=== PATIENT | male | born 1990 | race Caucasian/White ===

== ENCOUNTER 2017-01-10 22:39 | Emergency (ER) | payer SELFPAY ==
[2017-01-11 02:23] VITALS: BP 136/76
[2017-01-11] MEDS ORDERED: NORCO 7.5/325 ONE (03:26)
[2017-01-11] MEDS ORDERED: NORCO 7.5/325 PO ONE (03:30)
--- NOTE | 2017-01-11 03:31 | Emergency Department Report ---
Abscess Boil HPI - HPI Chief Complaint: Skin/Abscess/Foreign Body Stated Complaint: ABCESS Time Seen by Provider: 01/11/17 02:20 History: Yes Pain, No Fever, No Purulent Drainage, No Numbness, No Foreign Body , No Previous History, No Insect Bite HPI: This is a 26-year-old male that presents with 1 cm left axillary abscess. Patient denies any fever, chills, numbness or tingling station extremity. Patient stated has noticed it 3 days ago. Patient denies any [id number] treatment. Patient denies chest pain, shortness of breath, abdominal pain, nausea or vomiting. is currently present at bedside. At this time the patient wasn't toxic or ill appearance. No signs of distress noted. Home Medications: Previous Rx's Medication Instructions Recorded Last Taken Type Cephalexin [Keflex] 500 mg PO Q12HR #10 cap 08/01/15 Unknown Rx Ibuprofen [Motrin] 800 mg PO Q8HR PRN #30 tablet 08/01/15 Unknown Rx HYDROcodone/APAP 7.5-325 [Noel 1 each PO Q6HR PRN #16 tablet 01/11/17 Unknown Rx 7.5/325] Ibuprofen [Motrin 600 MG tab] 600 mg PO Q8H PRN 7 Days 01/11/17 Unknown Rx Sulfamethoxazole/Trimethoprim 1 each PO BID 7 Days 01/11/17 Unknown Rx [Bactrim DS TAB] Allergies/Adverse Reactions: Allergies Allergy/AdvReac Type Severity Reaction Status Date / Time No Known Allergies Allergy Verified 08/01/15 16:46 ED Review of Systems ROS: Stated complaint: ABCESS Other details as noted in HPI Constitutional: denies: chills, fever Eyes: denies: eye pain, eye discharge, vision change ENT: denies: ear pain, throat pain Respiratory: denies: cough, shortness of breath, wheezing Cardiovascular: denies: chest pain, palpitations Endocrine: no symptoms reported Gastrointestinal: denies: abdominal pain, nausea, diarrhea Genitourinary: denies: urgency, dysuria Musculoskeletal: denies: back pain, joint swelling, arthralgia Skin: denies: rash, lesions Neurological: denies: headache, weakness, paresthesias Psychiatric: denies: anxiety, depression Hematological/Lymphatic: denies: easy bleeding, easy bruising ED Past Medical Hx - Past Medical History Previous Medical History?: No - Surgical History Past Surgical History?: No - Social History Smoking Status: Current Every Day Smoker Substance Use Type: None - Medications Home Medications: Home Medications Medication Instructions Recorded Confirmed Last Taken Type Cephalexin [Keflex] 500 mg PO Q12HR #10 cap 08/01/15 Unknown Rx Ibuprofen [Motrin] 800 mg PO Q8HR PRN #30 tablet 08/01/15 Unknown Rx HYDROcodone/APAP 7.5-325 [Noel 1 each PO Q6HR PRN #16 tablet 01/11/17 Unknown Rx 7.5/325] Ibuprofen [Motrin 600 MG tab] 600 mg PO Q8H PRN 7 Days 01/11/17 Unknown Rx Sulfamethoxazole/Trimethoprim 1 each PO BID 7 Days 01/11/17 Unknown Rx [Bactrim DS TAB] ED Abscess Boil Physical Exam - Exam General: Vital signs noted. No distress. Alert and acting appropriately. GENERAL: The patient is a well-developed, well-nourished male in no apparent distress. He is alert and oriented x3. VITAL SIGNS: Stable HEENT: Head is normocephalic and atraumatic. Extraocular muscles are intact. Pupils are equal, round, and reactive to light and accommodation. Nares appeared normal. Mouth is well hydrated and without lesions. Mucous membranes are moist. Posterior pharynx clear of any exudate or lesions. NECK: Supple. No carotid bruits. No lymphadenopathy or thyromegaly. LUNGS: Clear to auscultation. HEART: Regular rate and rhythm without murmur. ABDOMEN: Soft, nontender, and nondistended. Positive bowel sounds. No hepatosplenomegaly was noted. EXTREMITIES: Without any cyanosis, clubbing, rash, lesions or edema. NEUROLOGIC: Cranial nerves II through XII are grossly intact. PSYCHIATRIC: Flat affect, but denies suicidal or homicidal ideations. SKIN: 1 cm tender cellulitis/abscess in left axilla. No signs of pus or drainage noted. Exam: Yes Tenderness, Yes Surrounding Cellulites/Erythema, Yes Normal Neurologic Exam, Yes Normal Circulation, No Fluctuance, No Lymphangitis, No Crepitation, No Heart Murmur Exam: 1 cm tender cellulitis/abscess in left axilla. No signs of pus or drainage noted. ED Course Vital Signs 01/10/17 01/11/17 01/11/17 23:47 02:21 02:23 Temperature 98.4 F Pulse Rate 77 73 Respiratory 18 18 Rate Blood Pressure 129/77 Blood Pressure 136/76 [Right] O2 Sat by Pulse 97 100 100 Oximetry - Reevaluation(s) Reevaluation #1: 01/11/17 04:01 Patient stated pain has decressed to a 4/10 after Noel. Reevaluation #2: 01/11/17 04:01 Dr. Colin examined the patient and agrees to discharge treatment plan. Critical care attestation.: If time is entered above; I have spent that time in minutes in the direct care of this critically ill patient, excluding procedure time. ED Medical Decision Making - Medical Decision Making Ed course: 26-year-old male that presents with a 1 cm tender cellulitis/abscess to the left axilla 1- patient received Noel 7.5 mg by mouth in ED which I decreased his pain to a 4 out of 10. 2- Dr. Colin of examined and agrees to discharge treatment plan. 3- patient received Bactrim for 7 days by mouth. I instructed the patient to finish full course of antibiotics as prescribed. 4- I also instructed the patient that he needs to return to the emergency room or see his primary care doctor for possibility of incision and drainage of the left axilla abscess. 5- patient received Noel 7.5 mg by mouth and I instructed the patient not use heavy machinery while taking Noel due to sedation 6- at the time of discharge the is present and stated she will drive the patient home. Patient received discharge plan. Patient has no further questions. 7- patient received ibuprofen 600 mg by mouth as needed. I instructed the patient that his symptoms don't subside with ibuprofen that he may take Noel as needed. ED Disposition Clinical Impression: Cellulitis Qualifiers: Site of cellulitis: unspecified site Qualified Code(s): L03.90 - Cellulitis, unspecified Disposition: DISCHARGED TO HOME OR SELFCARE Is pt being admited?: No Does the pt Need Aspirin: No Condition: Stable Instructions: Cellulitis (ED) Additional Instructions: Please return to emergency room or your primary care doctor in 3-5 days to recheck cellulitis/abscess for possibility of incision and drainage Please take full course of antibiotic as prescribed Take Noel as prescribed as needed. Do not use heavy machinery while taking Noel due to sedation If symptoms worsen report back to emergency room. Prescriptions: HYDROcodone/APAP 7.5-325 [Noel 7.5/325] 1 each PO Q6HR PRN #16 tablet PRN Reason: Pain Ibuprofen [Motrin 600 MG tab] 600 mg PO Q8H PRN 7 Days PRN Reason: Pain Sulfamethoxazole/Trimethoprim [Bactrim DS TAB] 1 each PO BID 7 Days Referrals: PRIMARY CARE, [Primary Care Provider] - 3-5 Days [facility] [Outside] - 3-5 Days [facility] [Outside] - 3-5 Days Forms: Work/School Release Form(ED)
== END 2017-01-11 04:55 | disposition home or self-care (01) ==
LOC: ED 22:39
DX: L02.412 Cutaneous abscess of left axilla (principal); F17.200 Nicotine dependence, unspecified, uncomplicated
CPT/HCPCS: 99282